=== PATIENT | male | born 2000 | race Two or more races ===

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

== ENCOUNTER 2024-08-04 16:10 | Emergency (ER) | payer OTHER ==
[2024-08-04 16:36] VITALS: BP 150/80; PULSE 60; RESP 17; TEMP 98.1; BMI 26.6
[2024-08-04] MEDS ORDERED: morphine SULFATE 4 MG/ML VIAL ONE (17:25)
[2024-08-04] MEDS ORDERED: ONDANSETRON 4 MG/2 ML VIAL ONE (17:25)
[2024-08-04] MEDS: morphine CARPU-JECT 4 MG/1 ML DISP.SYRIN IVPUSH ONE (17:45)
[2024-08-04] MEDS: SODIUM CHLORIDE 1,000 ML IV STA (17:45)
[2024-08-04] MEDS: ONDANSETRON 4 MG/2 ML VIAL IVPUSH ONE (17:46)
[2024-08-04 17:54] LABS: PH,URINE 6.5 (5.0-8.0); URINE APPEARANCE CLEAR; URINE BILIRUBIN NEGATIVE (NEGATIVE); URINE COLOR YELLOW; URINE GLUCOSE (UA) NEGATIVE (NEGATIVE); URINE KETONE NEGATIVE (NEGATIVE); URINE LEUK ESTERASE NEGATIVE (NEGATIVE); URINE NITRITE NEGATIVE (NEGATIVE); URINE PROTEIN NEGATIVE (NEGATIVE); URINE UROBILINOGEN 0.2 mg/dL (0.2-1.0)
[2024-08-04 17:58] LABS: BASO % 0.6 % (0-2.0); EOS % 2.9 % (0-4.5); HEMATOCRIT 47.3 % (35.4-49); HEMOGLOBIN 16.3 GM/dL (11.7-16.9); LYMPH % 18.6 % (8-40); MCH 31.9 pg (25.7-33.7); MCHC 34.5 g/dl (32.0-35.9); MEAN CELL VOLUME 92.7 fl (80-96); MEAN PLT VOLUME 7.9 fl (7.5-11.1); NEUT % 73.9 % (42.8-82.8); PLATELET COUNT 358 10^3/uL (134-434); RBC 5.11 M/mm3 (4.00-5.60); RDW 12.8 % (11.9-15.9); WHITE BLOOD COUNT 8.7 K/mm3 (4.0-10.0)
[2024-08-04 18:14] LABS: POTASSIUM 4.2 mmol/L (3.5-5.1)
[2024-08-04 18:15] LABS: CALCIUM 10.1 mg/dL (8.5-10.1)
[2024-08-04 18:16] LABS: ALBUMIN 4.6 g/dl (3.4-5.0); BLOOD UREA NITROGEN 18.2 mg/dL (7-18)
[2024-08-04 18:19] LABS: CREATININE 1.1 mg/dL (0.55-1.3)
[2024-08-04 18:21] LABS: BILIRUBIN,TOTAL 0.4 mg/dL (0.2-1); TOT PROT 8.4 g/dl (6.4-8.2)
[2024-08-04 19:09] LABS: HIV INTERPRETATION NEGATIVE (NEGATIVE)
== END 2024-08-04 20:00 | disposition home or self-care (01) ==
LOC: JER 16:10
PROC: 3E033NZ Introduction of Analgesics, Hypnotics, Sedatives into Peripheral Vein, Percutaneous Approach (ICD-10-PCS; principal; 2024-08-04)
PROC: 3E033GC Introduction of Other Therapeutic Substance into Peripheral Vein, Percutaneous Approach (ICD-10-PCS; 2024-08-04)
PROC: 3E0337Z Introduction of Electrolytic and Water Balance Substance into Peripheral Vein, Percutaneous Approach (ICD-10-PCS; 2024-08-04)
DX: K52.9 Noninfective gastroenteritis and colitis, unspecified (principal); R10.9 Unspecified abdominal pain; R11.0 Nausea
CPT/HCPCS: 36415; 74177-TC; 80053; 81003; 83690; 85025; 86803; 86850; 86900; 86901; 87086; 87389; 93005; 93010; 99285-25; Q9967